=== PATIENT | male | born 1990 | race Caucasian/White ===

== ENCOUNTER 2016-11-20 22:31 | Emergency (ER) | payer OTHER ==
[~2016-11-20] VITALS: Ht 182.9 cm; Wt 136.1 kg
[2016-11-20 22:42] VITALS: BP 151/71
--- NOTE | 2016-11-20 23:27 | NUR ---
PT TAKEN TO OF
--- NOTE | 2016-11-20 23:36 | NUR ---
Dr. Waldrop evaluating patient
[2016-11-20 23:38] VITALS: BP 135/74
--- NOTE | 2016-11-20 23:38 | NUR ---
Patient discharged with v/s stable. Written and verbal after care instructions given and explained. Patient alert, oriented and verbalized understanding of instructions. Ambulatory with steady gait. All questions addressed prior to discharge. ID band removed. Patient advised to follow up with PMD. Rx of Phenergan with codeine, Augmentin, and Prednisone given. Patient educated on indication of medication including possible reaction and side effects. Opportunity to ask questions provided and answered.
== END 2016-11-20 23:38 | disposition home or self-care (01) ==
LOC: MED 22:31
DX: J06.9 Acute upper respiratory infection, unspecified (principal)
CPT/HCPCS: 99283

== ENCOUNTER 2018-08-19 13:02 | Emergency (ER) | payer OTHER ==
[~2018-08-19] VITALS: Ht 185.4 cm; Wt 122.5 kg
[2018-08-19 13:08] VITALS: BP 139/80
--- NOTE | 2018-08-19 13:10 | NUR ---
ERMD AT BEDSIDE
--- NOTE | 2018-08-19 13:14 | NUR ---
C/O L FOOT PAIN 9/10 SHARP, NON RADIATING X1 WEEK. PT STATES HE MAY HAVE OVER USED IT AT WORK. PT TOOK IBUPROFEN AND 1/3 HYDROCODONE 5MG AT HOME WITH NO RELIEF. PT DENIES TRAUMA, THERE IS NO OBVIOUS DEFORMITY, NO REDNESS, NO SWELLING NOTED. M/S FUNCTIONS INTACT. BED IN LOW POSITION.
[2018-08-19] MEDS ORDERED: KETOROLAC 60 MG/2 ML VIAL IM ONE (13:15)
[2018-08-19 14:10] VITALS: BP 139/80
--- NOTE | 2018-08-19 14:11 | NUR ---
Patient discharged with v/s stable. Written and verbal after care instructions given and explained. Patient alert, oriented and verbalized understanding of instructions. Ambulatory with steady gait. All questions addressed prior to discharge. ID band removed. Patient advised to follow up with PMD. Rx of NORCO, IBUPROFEN given. Patient educated on indication of medication including possible reaction and side effects. Opportunity to ask questions provided and answered.
== END 2018-08-19 14:11 | disposition home or self-care (01) ==
LOC: MED 13:02
DX: S90.32XA Contusion of left foot, initial encounter (principal); F17.200 Nicotine dependence, unspecified, uncomplicated; X58.XXXA Exposure to other specified factors, initial encounter; Y93.89 Activity, other specified; Y92.89 Other specified places as the place of occurrence of the external cause; Y99.8 Other external cause status
CPT/HCPCS: 96372; 99283; J1885

== ENCOUNTER 2019-05-11 14:31 | Emergency (ER) | payer MEDICAID, OTHER ==
[~2019-05-11] VITALS: Ht 179.1 cm; Wt 116.1 kg
[2019-05-11 14:35] VITALS: BP 141/76
--- NOTE | 2019-05-11 14:40 | NUR ---
PT AMBULATED TO BED
--- NOTE | 2019-05-11 14:50 | NUR ---
28YO M C/O DIFFICULTY SWALLOWING SINCE THIS AM. PT DESCRIBES IT "CHOKING AND TIGHTNESS WHEN I SWALLOW." PAIN 3/10, PRESSURE-LIKE. +WEAKNESS, +FATIGUE. DENIES , CP, N/V/D. PT AFEBRILE, VSS. TONSILS INFLAMED, WITH VISIBLE PUS ON R TONSIL. PT POSITIONED IN BED COMFORTABLY, SIDE RAILS UP. ER MD MADE AWARE OF PT STATUS. PMH: NONE MEDS: NONE ALLERGIES: NONE
[2019-05-11] MEDS ORDERED: DEXAMETHASONE 10 MG/ML VIAL IM ONE (14:55)
[2019-05-11 16:15] VITALS: BP 141/76
--- NOTE | 2019-05-11 16:16 | NUR ---
Patient discharged with v/s stable. Written and verbal after care instructions given and explained. Patient alert, oriented and verbalized understanding of instructions. Ambulatory with steady gait. All questions addressed prior to discharge. ID band removed. Patient advised to follow up with PMD. Rx of IBUPROFEN, CEPACOL given. Patient educated on indication of medication including possible reaction and side effects. Opportunity to ask questions provided and answered.
== END 2019-05-11 16:16 | disposition home or self-care (01) ==
LOC: MED 14:31
DX: J02.8 Acute pharyngitis due to other specified organisms (principal)
CPT/HCPCS: 87081; 96372; 99283; J1100

== ENCOUNTER 2019-07-01 11:07 | Emergency (ER) | payer MEDICAID ==
[~2019-07-01] VITALS: Ht 180.3 cm; Wt 117.5 kg
[2019-07-01 11:16] VITALS: BP 128/80
[2019-07-01 14:21] VITALS: BP 123/72
== END 2019-07-01 14:21 | disposition home or self-care (01) ==
LOC: MED 11:07
DX: J02.8 Acute pharyngitis due to other specified organisms (principal); B96.89 Other specified bacterial agents as the cause of diseases classified elsewhere
CPT/HCPCS: 87081; 87804; 99283

== ENCOUNTER 2019-07-16 08:57 | Emergency (ER) | payer MEDICAID ==
[~2019-07-16] VITALS: Ht 180.3 cm; Wt 123.0 kg
[2019-07-16 09:01] VITALS: BP 134/80
--- NOTE | 2019-07-16 09:05 | NUR ---
pt ambulated to room 12
--- NOTE | 2019-07-16 09:07 | NUR ---
29 YO M C/C OF 07/15 RIGHT TONSIL/THROAT AND RIGHT EAR PAIN X2 DAYS. PT STATES HE RECEIVED ANTIBIOTICS HERE 2 WEEKS AGO FOR THESE SYMPTOMS BUT DID NOT FINISH RX BECAUSE IT MADE HIS STOMACH UPSET. PT DOES NOT REMEMBER NAME OF RX. PT STATES HIS SYMPTOMS BEGAN REOCCURING 2 DAYS AGO AND IS COMING TO ER TO GET A WORK RELEASE NOTE THAT IS REQUIRED BY HIS EMPLOYER. DENIES ANY TAVEL, SOB, COUGH, OR FEVER. VSS. PT RESTING COMFORTABLY IN BED. VSS. SIDE RAILS X1. NKA NO MED HX NO RX
--- NOTE | 2019-07-16 09:25 | NUR ---
ER MD AT BEDSIDE EVALUATING PT
[2019-07-16 10:11] LABS: BASOPHILS % (AUTO) 0.3 % (0.0-2.0); EOSINOPHILS # (AUTO) 0.2 K/uL (0-0.4); EOSINOPHILS % (AUTO) 2.7 % (0.0-4.0); HEMATOCRIT 45.6 % (36-52); HEMOGLOBIN 15.3 g/dL (12.0-18.0); LYMPHOCYTES % (AUTO) 28.7 % (20.5-51.1); MEAN CORPUSCULAR HEMOGLOBIN 29 pg (27-31); MEAN CORPUSCULAR HGB CONC 34 g/dL (33-37); MEAN CORPUSCULAR VOLUME 86.8 fL (80-94); MONOCYTES # (AUTO) 0.5 K/uL (0.8-1.0); MONOCYTES % (AUTO) 7.9 % (1.7-9.3); NEUTROPHILS # (AUTO) 4.1 K/uL (1.8-7.7); NEUTROPHILS % (AUTO) 60.4 % (42.2-75.2); PLATELET COUNT (AUTO) 226 K/uL (140-450); RED BLOOD CELL COUNT(AUTO) 5.25 MIL/uL (4.20-6.10); RED CELL DISTRIBUTION WIDTH 13.2 % (11.6-13.7); WHITE BLOOD COUNT (AUTO) 6.9 K/uL (4.8-10.8)
[2019-07-16 10:50] LABS: ALBUMIN 3.5 g/dL (3.4-5.0); ANION GAP 10.7 (8-16); CARBON DIOXIDE 31.9 mmol/L (21-32); POTASSIUM 4.6 mmol/L (3.5-5.1); TOTAL BILIRUBIN 0.5 mg/dL (0.0-1.0)
[2019-07-16 11:38] VITALS: BP 134/80
== END 2019-07-16 11:35 | disposition home or self-care (01) ==
LOC: MED 08:57
DX: J03.90 Acute tonsillitis, unspecified (principal)
CPT/HCPCS: 36415; 80053; 85025; 86308; 99283

== ENCOUNTER 2019-09-13 12:35 | Emergency (ER) | payer MEDICAID ==
[~2019-09-13] VITALS: Ht 180.3 cm; Wt 120.2 kg
[2019-09-13 12:40] VITALS: BP 134/67
--- NOTE | 2019-09-13 12:46 | NUR ---
AMBULATED TO BED 7
--- NOTE | 2019-09-13 12:50 | NUR ---
C/O INTERMITTENT L KNEE PAIN X 1 YEAR. PT STATES PAIN IS 7/10 AND WORSE WITH AMBULATING OR EXERCISE. STATES HE DIDNT INJURE HIS KNEE 1 YEAR AGO AND DENIES RECENT TRAUMA OR INJURY. +CMS. PT REPORTS TAKING IBUPROFEN WITH NO RELIEF. PT ALERT AND AWAKE. VS STABLE. AMBULATORY.
[2019-09-13] MEDS ORDERED: KETOROLAC 60 MG/2 ML VIAL IM ONE (13:05)
--- NOTE | 2019-09-13 13:05 | NUR ---
DR KUNZ AT BEDSIDE
--- NOTE | 2019-09-13 13:10 | NUR ---
[facility] IM ADMINISTERED
--- NOTE | 2019-09-13 13:30 | NUR ---
NADR, PAIN 07/15
[2019-09-13 13:31] VITALS: BP 132/72
--- NOTE | 2019-09-13 13:31 | NUR ---
Patient discharged with v/s stable. Written and verbal after care instructions given and explained. Patient alert, oriented and verbalized understanding of instructions. Ambulatory with steady gait. All questions addressed prior to discharge. ID band removed. Patient advised to follow up with PMD. Rx of NORCO AND MOTRIN given. Patient educated on indication of medication including possible reaction and side effects. Opportunity to ask questions provided and answered. PT INSTRUCTED THAT NORCO MAY CAUSE DROWSINESS AND IMPAIR DRIVING PT INSTRUCTED TO APPLY ICE FOR PAIN RELIEF. INSTRUCTED TO FOLLOW UP WITH PCP FOR FOLLOW UP CARE AND SEEING A SPECIALIST/THERAPY
== END 2019-09-13 13:31 | disposition home or self-care (01) ==
LOC: MED 12:35
DX: M79.672 Pain in left foot (principal); M25.562 Pain in left knee
CPT/HCPCS: 96372; 99283; J1885

== ENCOUNTER 2019-10-28 14:04 | Emergency (ER) | payer MEDICAID, SELFPAY ==
[~2019-10-28] VITALS: Ht 182.9 cm; Wt 122.5 kg
[2019-10-28 15:00] VITALS: BP 137/80
[2019-10-28 16:03] VITALS: BP 137/80
== END 2019-10-28 16:02 | disposition home or self-care (01) ==
LOC: MED 14:04
DX: R05 Cough (principal); R06.02 Shortness of breath; Z20.828 Contact with and (suspected) exposure to other viral communicable diseases
CPT/HCPCS: 99283; U0003

== ENCOUNTER 2020-04-24 11:41 | Emergency (ER) | payer MEDICAID, SELFPAY ==
[~2020-04-24] VITALS: Ht 182.9 cm; Wt 136.1 kg
--- NOTE | 2020-04-24 11:42 | NUR ---
Patient ambulated to the overflow tent for further care. RN evaluating the patient.
[2020-04-24 11:47] VITALS: BP 146/66
[2020-04-24 13:00] VITALS: BP 146/66
--- NOTE | 2020-04-24 13:00 | NUR ---
Patient discharged with v/s stable. Written and verbal after care instructions given and explained. Patient alert, oriented and verbalized understanding of instructions. Ambulatory with steady gait. All questions addressed prior to discharge. ID band removed. Patient advised to follow up with PMD. Rx of HYDROCHLOROQUINE, AZITHROMYCIN, IVERMECTIN, ASPIRIN, ZINC SULFATE, PREDNISONE given. Patient educated on indication of medication including possible reaction and side effects. Opportunity to ask questions provided and answered.
== END 2020-04-24 13:00 | disposition home or self-care (01) ==
LOC: MED 11:41
DX: U07.1 COVID-19 (principal)
CPT/HCPCS: 99283; U0003

== ENCOUNTER 2020-05-13 13:49 | Emergency (ER) | payer MEDICAID, SELFPAY ==
[~2020-05-13] VITALS: Ht 182.9 cm; Wt 136.1 kg
--- NOTE | 2020-05-13 13:55 | NUR ---
PT TAKEN TO BED 9. AMBULATED WITH STEADY GAIT.
[2020-05-13 14:01] VITALS: BP 139/94
--- NOTE | 2020-05-13 14:04 | NUR ---
RN at pt bedside for evaluation.
--- NOTE | 2020-05-13 14:08 | NUR ---
29 Y/O male c/o SOB [id number]. Pt states father was COVID + on 04/13/19 and pt COVID + on 04/20/19. Pt states he also has myalgia, numbness and tingling in hands and feet, subjective fever, loss of taste/smell, + N/V/D, anxiety, and abd cramping. Pt took wifes albuterol today with no relief. pt states he has been having anxiety attacks the past 3 weeks with the SOB and is taking CBD. pt describes tightness in chest and is intermittent. Denies PMH NKA
--- NOTE | 2020-05-13 14:20 | NUR ---
EDE Roche at pt bedside.
--- NOTE | 2020-05-13 14:29 | NUR ---
DEE NOVEL SAMPLE COLLECTED AND WALKED TO LAB
--- NOTE | 2020-05-13 14:46 | NUR ---
X-Ray at bedside.
[2020-05-13 15:28] VITALS: BP 139/94
--- NOTE | 2020-05-13 15:29 | NUR ---
Patient discharged with v/s stable. Written and verbal after care instructions given and explained. Patient alert, oriented and verbalized understanding of instructions. Ambulatory with steady gait. All questions addressed prior to discharge. ID band removed. Patient advised to follow up with PMD. Rx of xopenex HFA 45mcg inhalation 2 puffs q6hrs and prednisone 20mg tab q12 hours PO given. Patient educated on indication of medication including possible reaction and side effects. Opportunity to ask questions provided and answered.
--- NOTE | 2020-05-16 14:59 | NUR ---
Covid results received from lab. Results = Positive. Hard copy requested from lab and placed in infection controls mailbox.
== END 2020-05-13 15:25 | disposition home or self-care (01) ==
LOC: MED 13:49
DX: U07.1 COVID-19 (principal); F12.10 Cannabis abuse, uncomplicated; F17.200 Nicotine dependence, unspecified, uncomplicated
CPT/HCPCS: 71045; 99284; U0003

== ENCOUNTER 2020-05-21 20:26 | Emergency (ER) | payer MEDICAID, SELFPAY ==
[~2020-05-21] VITALS: Ht 182.9 cm; Wt 136.1 kg
[2020-05-21 20:30] VITALS: BP 146/79
--- NOTE | 2020-05-21 20:30 | NUR ---
TO BED AMBULATORY
--- NOTE | 2020-05-21 20:55 | NUR ---
PT PRESENTS TO THE ED WITH COMPLAINT OF N/V AND SOB. PT TESTED POSITIVE FOR COVID ON APRIL AND . PT STATES HE WAS GIVEN STEROIDS AND VITAMIN D. COMPLETED MEDICATIONS, BUT REPORTS FEELING DEPRESSED AND ANXIOUS AFTER COMPLETION OF PRESCRIPTION. PT REPORTS HAVING A BLACK OUT EPISODE PRIOR TO COMING IN TO THE ED. PT DENIES OTHER MEDICAL HX. PT ON RA AT THIS TIME WITH CONTINUOUS O2 MONITORING. O2 SAT IS 98%. NO S/SX OF DISTRESS AT THIS TIME.
[2020-05-21] MEDS ORDERED: LORazepam 2 MG/ML VIAL IVP ONE (21:35)
[2020-05-21] MEDS ORDERED: NACL 0.9% 1,000 ML IV SCH (21:35)
[2020-05-21] MEDS ORDERED: ONDANSETRON 4 MG/2 ML VIAL IVP ONE (21:35)
--- NOTE | 2020-05-21 21:45 | NUR ---
Xray at bedside.
--- NOTE | 2020-05-21 22:20 | NUR ---
20G IV RT AC ESTABLISHED. BLOOD DRAWN VIA IV START AND GIVEN TO NON DESTRUCTIVE TESTING INSPECTOR
[2020-05-21 22:33] LABS: BASOPHILS # (AUTO) 0.1 K/uL (0.00-0.22); BASOPHILS % (AUTO) 0.6 % (0.0-2.0); EOSINOPHILS # (AUTO) 0.2 K/uL (0-0.4); EOSINOPHILS % (AUTO) 2.3 % (0.0-4.0); HEMATOCRIT 44.3 % (36-52); HEMOGLOBIN 15.7 g/dL (12.0-18.0); LYMPHOCYTES # (AUTO) 1.9 K/uL (2.0-11.5); LYMPHOCYTES % (AUTO) 23.2 % (20.5-51.1); MEAN CORPUSCULAR HEMOGLOBIN 30 pg (27-31); MEAN CORPUSCULAR HGB CONC 35 g/dL (33-37); MONOCYTES # (AUTO) 0.7 K/uL (0.8-1.0); MONOCYTES % (AUTO) 8.2 % (1.7-9.3); NEUTROPHILS # (AUTO) 5.4 K/uL (1.8-7.7); NEUTROPHILS % (AUTO) 65.7 % (42.2-75.2); PLATELET COUNT (AUTO) 232 K/uL (140-450); RED BLOOD CELL COUNT(AUTO) 5.27 MIL/uL (4.20-6.10); RED CELL DISTRIBUTION WIDTH 12.7 % (11.6-13.7); WHITE BLOOD COUNT (AUTO) 8.2 K/uL (4.8-10.8)
[2020-05-21 22:59] LABS: ALBUMIN 3.6 g/dL (3.4-5.0); ANION GAP 11.8 (8-16); CARBON DIOXIDE 28.3 mmol/L (21-32); CREATININE 0.9 mg/dL (0.6-1.3); FREE T4 (FREE THYROXINE) 0.87 ng/dL (0.76-1.46); POTASSIUM 4.1 mmol/L (3.5-5.1); THYROID STIMULATING HORMONE 3.11 uIU/mL (0.34-3.74); TOTAL BILIRUBIN 0.3 mg/dL (0.0-1.0)
[2020-05-22 00:11] VITALS: BP 133/86
== END 2020-05-21 23:48 | disposition home or self-care (01) ==
LOC: MED 20:26
DX: R55 Syncope and collapse (principal); F41.9 Anxiety disorder, unspecified; F12.10 Cannabis abuse, uncomplicated
CPT/HCPCS: 36415; 71045; 80053; 83690; 84439; 84443; 84484; 85025; 85379; 93005; 96361; 96374; 96375; 99285; J2060; J2405; J7030

== ENCOUNTER 2020-07-21 22:01 | Emergency (ER) | payer MEDICAID, SELFPAY ==
[~2020-07-21] VITALS: Ht 182.9 cm; Wt 136.1 kg
[2020-07-21 22:15] VITALS: BP 131/78
--- NOTE | 2020-07-21 22:18 | NUR ---
to lobby a/w bed ambulatory
--- NOTE | 2020-07-21 23:30 | NUR ---
30 y/o M, bib self d/t Rt knee pain that has been progressing for over 2days since after his Pfizer shot. Patient states having generalized joint pain but more so on his rt knee. He denies taking any pain medication to alleviate pain. PMH: None NKA
[2020-07-22] VITALS: BP 138/79
--- NOTE | 2020-07-22 00:01 | NUR ---
Patient discharged with v/s stable. Written and verbal after care instructions given and explained. Patient verbalized understanding. Ambulatory with steady gait. All questions addressed prior to discharge. Advised to follow up with PMD.
== END 2020-07-22 00:01 | disposition home or self-care (01) ==
LOC: MED 22:01
DX: M25.562 Pain in left knee (principal); M25.462 Effusion, left knee; X58.XXXA Exposure to other specified factors, initial encounter; Y93.89 Activity, other specified; Y92.89 Other specified places as the place of occurrence of the external cause; Y99.8 Other external cause status
CPT/HCPCS: 99282

== ENCOUNTER 2020-11-14 13:40 | Emergency (ER) | payer MEDICAID ==
[~2020-11-14] VITALS: Ht 180.3 cm; Wt 132.9 kg
[2020-11-14 13:47] VITALS: BP 149/81
--- NOTE | 2020-11-14 13:55 | NUR ---
PT AMBULATED TO BED
--- NOTE | 2020-11-14 14:08 | NUR ---
30 MALE WITH C/O BACK PAIN SINCE FRIDAY. S/P INJURY AT WORK LIFTING FURNITURE. PT STATES SHARP, "SHOOTING" BACK PAIN WITH LT ARM TINGLING. 01/14 PAIN. PT STATES HE HAS TAKEN ADVIL AT HOME, WHICH HAS PROVIDED LITTLE TO NO RELIEF. PT STATES HE IS UNABLE TO TURN HIS HEAD TO THE L DUE TO PAIN. MEDHX: DENIES NKA
--- NOTE | 2020-11-14 14:10 | NUR ---
PT TAKEN TO XRAY VIA W/C
[2020-11-14] MEDS ORDERED: KETOROLAC 30 MG/ML VIAL IM ONE (14:15)
--- NOTE | 2020-11-14 14:24 | NUR ---
PT RETURNED TO ROOM 8 FROM XRAY VIA W/C
[2020-11-14] MEDS ORDERED: DICL100G5 TP (15:12)
[2020-11-14] MEDS ORDERED: NAPR-1704 PO (15:12)
[2020-11-14 15:25] VITALS: BP 149/81
--- NOTE | 2020-11-14 15:26 | NUR ---
Patient discharged with v/s stable. Written and verbal after care instructions given and explained. Patient alert, oriented and verbalized understanding of instructions. Ambulatory with steady gait. All questions addressed prior to discharge. ID band removed. Patient advised to follow up with PMD. Rx of NAPROXEN AND DICLOFENAC SODIUM given. Patient educated on indication of medication including possible reaction and side effects. Opportunity to ask questions provided and answered.
== END 2020-11-14 15:26 | disposition home or self-care (01) ==
LOC: MED 13:40
DX: S46.002A Unspecified injury of muscle(s) and tendon(s) of the rotator cuff of left shoulder, initial encounter (principal); Z79.899 Other long term (current) drug therapy; Z98.890 Other specified postprocedural states; X50.0XXA Overexertion from strenuous movement or load, initial encounter; Y93.89 Activity, other specified; Y92.89 Other specified places as the place of occurrence of the external cause; Y99.8 Other external cause status
CPT/HCPCS: 72080; 96372; 99283; J1885

== ENCOUNTER 2021-08-10 15:32 | Emergency (ER) | payer MEDICAID ==
[~2021-08-10] VITALS: Ht 182.9 cm; Wt 137.1 kg
[~2021-08-10 15:32] MED LIST: DICL100G5 TP; NAPR-1704 PO
[2021-08-10 15:36] VITALS: BP 131/91
--- NOTE | 2021-08-10 15:58 | NUR ---
31 Y/O MALE BIB SELF DUE TO COUGH, CONGESTION, CHEST TIGHTNESS/BURNING, HEADACHE, COUGH AND DIFFICULTY BREATHING X2 DAYS. PT CURRENTLY SATING 97% ON RA. PT ALERT AND ORIENTED X4. LUNG SOUNDS CTA. CAP REFILL IMMEDIATE. BED LOCKED IN LOWEST POSITION, SIDE RAIL X1. PMH: DENIES NKA
--- NOTE | 2021-08-10 16:23 | NUR ---
XR AT PT BEDSIDE
[2021-08-10] MEDS ORDERED: SUD30 PO (16:39)
[2021-08-10] MEDS ORDERED: PROM118S5 PO (16:39)
[2021-08-10] MEDS ORDERED: AZIT250T4 PO (16:39)
[2021-08-10] MEDS ORDERED: PRED20TA5 PO (16:39)
[2021-08-10] MEDS ORDERED: BENZONATATE 100 MG CAPLF PO PRN (16:50)
[2021-08-10 16:55] VITALS: BP 131/91
--- NOTE | 2021-08-10 16:56 | NUR ---
Patient discharged with v/s stable. Written and verbal after care instructions given and explained. Patient alert, oriented and verbalized understanding of instructions. Ambulatory with steady gait. All questions addressed prior to discharge. ID band removed. Patient advised to follow up with PMD. Rx of ZITHROMAX,PROMETHAZINE, SUDAFED given. Patient educated on indication of medication including possible reaction and side effects. Opportunity to ask questions provided and answered.
== END 2021-08-10 16:55 | disposition home or self-care (01) ==
LOC: MED 15:32
DX: B34.9 Viral infection, unspecified (principal); Z79.899 Other long term (current) drug therapy
CPT/HCPCS: 71045; 99283; Q0092

== ENCOUNTER 2022-03-22 11:36 | Emergency (ER) | payer MEDICAID ==
[~2022-03-22] VITALS: Ht 182.9 cm; Wt 134.3 kg
[~2022-03-22 11:36] MED LIST changes: +AZIT250T4 PO; +PROM118S5 PO; +SUD30 PO
[2022-03-22 11:44] VITALS: BP 156/103
--- NOTE | 2022-03-22 13:17 | NUR ---
31M presents to ED with c/o Right sided jaw tightness, left arm numbness, and chest tightness/soreness x1day. Pt reports an episode yesterday of blurred vision, tingling and numbness of left arm radiating to left hand/fingers, chest tightness and SOB. Pt denies blurred vision, SOB and tingling today upon assessment, reports a constant, tight/sore like, 6/10 pain to right side of jaw and chest. Pt reports constant numb feeling to left arm, and feeling of exhaustion. Pt denies cough, cold symptoms, denies taking any meds.
--- NOTE | 2022-03-22 13:29 | NUR ---
Dr. Taylor at bedside evaluating pt.
[2022-03-22 15:19] LABS: BASOPHILS % (AUTO) 0.4 % (0.0-2.0); EOSINOPHILS # (AUTO) 0.1 K/uL (0-0.4); EOSINOPHILS % (AUTO) 1.4 % (0.0-4.0); HEMATOCRIT 44.3 % (36-52); LYMPHOCYTES # (AUTO) 2.3 K/uL (2.0-11.5); LYMPHOCYTES % (AUTO) 28.7 % (20.5-51.1); MEAN CORPUSCULAR HEMOGLOBIN 29 pg (27-31); MEAN CORPUSCULAR HGB CONC 34 g/dL (33-37); MEAN CORPUSCULAR VOLUME 85.4 fL (80-94); MONOCYTES # (AUTO) 0.4 K/uL (0.8-1.0); MONOCYTES % (AUTO) 5.5 % (1.7-9.3); NEUTROPHILS # (AUTO) 5.1 K/uL (1.8-7.7); PLATELET COUNT (AUTO) 249 K/uL (140-450); RED BLOOD CELL COUNT(AUTO) 5.19 MIL/uL (4.20-6.10); RED CELL DISTRIBUTION WIDTH 13.1 % (11.6-13.7); WHITE BLOOD COUNT (AUTO) 7.9 K/uL (4.8-10.8)
[2022-03-22 15:27] LABS: ALBUMIN 3.1 g/dL (3.4-5.0); ANION GAP 8.2 (8-16); ASPARTATE AMINOTRANSFERASE 19 U/L (15-37); CHLORIDE 106 mmol/L (98-107); CREATININE 0.8 mg/dL (0.6-1.3); GFR ARICAN-AMERICAN 144 mL/min (>90); GLUCOSE 94 mg/dL (74-106); POTASSIUM 4.2 mmol/L (3.5-5.1); SODIUM SERUM 143 mmol/L (136-145); TOTAL BILIRUBIN 0.4 mg/dL (0.0-1.0); UREA NITROGEN, BLOOD 9 mg/dL (7-18)
--- NOTE | 2022-03-22 16:03 | NUR ---
Pt brought back from CT via w/c.
[2022-03-22] MEDS ORDERED: ONDANSETRON 4 MG/2 ML VIAL IVP ONE (16:10)
[2022-03-22] MEDS ORDERED: IBUP-2213 PO (17:04)
[2022-03-22] MEDS ORDERED: ONDA-188 PO (17:04)
--- NOTE | 2022-03-22 17:15 | NUR ---
IV removed, catheter intact and site benign. Applied folded 4x4 gauze and tape to stop bleeding.
[2022-03-22 17:19] VITALS: BP 139/88
== END 2022-03-22 17:19 | disposition home or self-care (01) ==
LOC: MED 11:36
DX: R68.84 Jaw pain (principal); R07.89 Other chest pain; R20.2 Paresthesia of skin; F17.210 Nicotine dependence, cigarettes, uncomplicated; Z79.899 Other long term (current) drug therapy; Z88.8 Allergy status to other drugs, medicaments and biological substances; Z98.890 Other specified postprocedural states
CPT/HCPCS: 36415; 70450; 70496; 70498; 71045; 80053; 84484; 85025; 85379; 96374; 99285; J2405; Q0092

== ENCOUNTER 2022-07-06 20:34 | Emergency (ER) | payer MEDICAID ==
[~2022-07-06] VITALS: Ht 182.9 cm; Wt 135.2 kg
[~2022-07-06 20:34] MED LIST changes: +IBUP-2213 PO; +ONDA-188 PO
[2022-07-06 21:00] VITALS: BP 142/86
[2022-07-06 21:05] VITALS: BP 142/86
--- NOTE | 2022-07-06 23:28 | NUR ---
Dr. Waldrop examining patient.
[2022-07-06] MEDS ORDERED: NACL 0.9% 1,000 ML IV ONE (23:35)
[2022-07-06] MEDS ORDERED: metroNIDAZOLE 500 MG/NS PREMIX 100 ML IV ONE (23:35)
--- NOTE | 2022-07-06 23:51 | NUR ---
PT RETURN FROM RADIOLOGY
--- NOTE | 2022-07-07 | NUR ---
31 Y/O M presents with discomfort and abdominal pain 01/14. pt states abdominal pain feels like cramps. pt denies any diarrhea but has some NV. pt is A&Ox4, skin intact, respirations even and unlabored. PMH- HTN allergies-prednisone
--- NOTE | 2022-07-07 00:08 | NUR ---
Patient taken to bed 8.
[2022-07-07 00:25] LABS: APPEARANCE,URINE CLEAR (CLEAR); BILIRUBIN,URINE NEGATIVE (NEGATIVE); BLOOD, URINE TRACE-I (NEGATIVE); COLOR,URINE YELLOW (YELLOW); LEUKOCYTE ESTERASE ,URINE NEGATIVE (NEGATIVE); NITRITE, URINE NEGATIVE (NEGATIVE); PH,URINE 5.5 (5.0-9.0); UGLUCOSE NEGATIVE (NEGATIVE)
[2022-07-07 00:39] LABS: ALBUMIN 3.6 g/dL (3.4-5.0); ANION GAP 12.6 (8-16); CARBON DIOXIDE 28.1 mmol/L (21-32); POTASSIUM 3.7 mmol/L (3.5-5.1); TOTAL BILIRUBIN 0.5 mg/dL (0.0-1.0)
[2022-07-07 00:47] LABS: RBC,URINE 0-5 /HPF (0-5)
[2022-07-07 01:22] LABS: BASOPHILS % (AUTO) 0.3 % (0.0-2.0); EOSINOPHILS # (AUTO) 0.2 K/uL (0-0.4); EOSINOPHILS % (AUTO) 1.3 % (0.0-4.0); HEMATOCRIT 44.4 % (36-52); LYMPHOCYTES # (AUTO) 2.4 K/uL (2.0-11.5); LYMPHOCYTES % (AUTO) 16.3 % (20.5-51.1); MEAN CORPUSCULAR HEMOGLOBIN 29 pg (27-31); MEAN CORPUSCULAR HGB CONC 34 g/dL (33-37); MONOCYTES # (AUTO) 1.3 K/uL (0.8-1.0); MONOCYTES % (AUTO) 8.9 % (1.7-9.3); NEUTROPHILS # (AUTO) 10.8 K/uL (1.8-7.7); NEUTROPHILS % (AUTO) 73.2 % (42.2-75.2); PLATELET COUNT (AUTO) 239 K/uL (140-450); RED BLOOD CELL COUNT(AUTO) 5.16 MIL/uL (4.20-6.10); RED CELL DISTRIBUTION WIDTH 13.7 % (11.6-13.7)
[2022-07-07 01:27] LABS: WHITE BLOOD COUNT (AUTO) 14.7 K/uL (4.8-10.8)
[2022-07-07] MEDS ORDERED: LEVOFLOXACIN 750 MG/D5W PREMIX 150 ML IV ONE (03:25)
--- NOTE | 2022-07-07 04:35 | NUR ---
pt resting in room, respirations even and unlabored. pt ambulatory to restroom
--- NOTE | 2022-07-07 05:24 | NUR ---
pt ambulatory to restroom
[2022-07-07] MEDS ORDERED: METR-435 PO (06:16)
[2022-07-07] MEDS ORDERED: LEVO750T75 PO (06:16)
--- NOTE | 2022-07-07 06:20 | NUR ---
Patient discharged with v/s stable. Written and verbal after care instructions given and explained. Patient alert, oriented and verbalized understanding of instructions. Ambulatory with steady gait. All questions addressed prior to discharge. ID band removed. Patient advised to follow up with PMD. Rx of levofloxacin and metronidazole given. Opportunity to ask questions provided and answered.
== END 2022-07-07 06:20 | disposition home or self-care (01) ==
LOC: MED 20:46
DX: K57.32 Diverticulitis of large intestine without perforation or abscess without bleeding (principal); I10 Essential (primary) hypertension; Z88.8 Allergy status to other drugs, medicaments and biological substances; Z79.899 Other long term (current) drug therapy
CPT/HCPCS: 36415; 71045; 74176; 80053; 81001; 83605; 85025; 87040; 87086; 96365; 96367; 99285; J1956; J3490; J7030

== ENCOUNTER 2023-10-18 18:31 | Emergency (ER) | payer SELFPAY ==
[~2023-10-18] VITALS: Ht 182.9 cm; Wt 117.0 kg
[~2023-10-18 18:31] MED LIST changes: +DICL100G32 TP; -DICL100G5 TP; +LEVO750T75 PO; +METR-435 PO
[2023-10-18 18:44] VITALS: BP 127/75; PULSE 98; RESP 16; TEMP 98.6; O2SAT 98
[2023-10-18 19:21] VITALS: O2SAT 99
[2023-10-18 19:42] LABS: BASOPHILS # (AUTO) 0.1 K/uL (0.00-0.22); BASOPHILS % (AUTO) 0.8 % (0.0-2.0); EOSINOPHILS # (AUTO) 0.2 K/uL (0-0.4); EOSINOPHILS % (AUTO) 2.5 % (0.0-4.0); HEMATOCRIT 43.2 % (36-52); HEMOGLOBIN 14.6 g/dL (12.0-18.0); LYMPHOCYTES # (AUTO) 2.6 K/uL (2.0-11.5); LYMPHOCYTES % (AUTO) 32.4 % (20.5-51.1); MEAN CORPUSCULAR HEMOGLOBIN 29 pg (27-31); MEAN CORPUSCULAR HGB CONC 34 g/dL (33-37); MEAN CORPUSCULAR VOLUME 85.8 fL (80-94); MONOCYTES # (AUTO) 0.5 K/uL (0.8-1.0); MONOCYTES % (AUTO) 5.8 % (1.7-9.3); NEUTROPHILS # (AUTO) 4.7 K/uL (1.8-7.7); NEUTROPHILS % (AUTO) 58.5 % (42.2-75.2); PLATELET COUNT (AUTO) 258 K/uL (140-450); RED BLOOD CELL COUNT(AUTO) 5.03 MIL/uL (4.20-6.10); RED CELL DISTRIBUTION WIDTH 12.9 % (11.6-13.7)
[2023-10-18] MEDS: ONDANSETRON 4 MG ODT PO ONE (19:47)
[2023-10-18] MEDS: KETOROLAC 30 MG/ML VIAL IM ONE (19:48)
[2023-10-18 20:02] LABS: ALBUMIN 3.6 g/dL (3.4-5.0); BILIRUBIN,DIRECT 0.1 mg/dL (0.0-0.3); TOTAL BILIRUBIN 0.4 mg/dL (0.0-1.0); TOTAL PROTEIN, SERUM 7.3 g/dL (6.4-8.2)
[2023-10-18 20:13] LABS: APPEARANCE,URINE CLEAR (CLEAR); BILIRUBIN,URINE NEGATIVE (NEGATIVE); BLOOD, URINE TRACE-I (NEGATIVE); COLOR,URINE YELLOW (YELLOW); LEUKOCYTE ESTERASE ,URINE NEGATIVE (NEGATIVE); NITRITE, URINE NEGATIVE (NEGATIVE); PROTEIN,URINE NEGATIVE (NEGATIVE); UGLUCOSE NEGATIVE (NEGATIVE); UROBILINOGEN,URINE 0.2 EU/dL (0.2 - 1)
[2023-10-18 20:13] LABS: ANION GAP 9.7 (8-16); CALCIUM 8.9 mg/dL (8.5-10.1); CARBON DIOXIDE 30.2 mmol/L (21-32); POTASSIUM 3.9 mmol/L (3.5-5.1)
[2023-10-18] MEDS ORDERED: AMOX-999 PO (23:11)
[2023-10-18] MEDS ORDERED: ONDA-188 PO (23:11)
[2023-10-18 23:30] VITALS: BP 124/79; PULSE 59; RESP 18; TEMP 98; O2SAT 99
== END 2023-10-18 23:30 | disposition home or self-care (01) ==
LOC: MED 18:31
DX: K57.32 Diverticulitis of large intestine without perforation or abscess without bleeding (principal); I10 Essential (primary) hypertension; Z79.899 Other long term (current) drug therapy; Z88.8 Allergy status to other drugs, medicaments and biological substances
CPT/HCPCS: 36415; 74176; 80048; 80076; 81003; 83690; 85025; 96372; 99285; J1885; Q0162